=== PATIENT | female | born 1980 ===

== ENCOUNTER 2020-08-26 17:40 | Emergency (ER) | payer SELFPAY ==
[~2020-08-26] VITALS: Ht 162.6 cm; Wt 65.8 kg
--- NOTE | 2020-08-26 18:01 | NUR ---
URINE SPECIMEN SENT TO LAB FOR UA. PT REQUESTED TO SEAT IN WAITING ROOM FOR RESULTS.
--- NOTE | 2020-08-26 18:33 | NUR ---
PT LEFT WITHOUT WAITING FOR TEST RESULTS.
[2020-08-26 18:40] LABS: *BILIRUBIN,URIN NEGATIVE (NEGATIVE); *BLOOD, URINE 2+ (NEGATIVE); *COLOR,URINE YELLOW (YELLOW); *KETONES,URINE NEGATIVE (NEGATIVE); *UROBILINOGEN,URINE 0.2 E.U./dl (NORMAL); LEUKOCYTE ESTERASE ,URINE 1+ (NEGATIVE); NITRITE, URINE NEGATIVE (NEGATIVE); PH,URINE 6.5 (5.0-8.0); UGLUCOSE NEGATIVE (NEGATIVE)
[2020-08-26 18:43] LABS: *URINE HCG, QUAL NEGATIVE (NEGATIVE)
[2020-08-26 19:01] LABS: *CLARITY,URINE HAZY (CLEAR)
[2020-08-26 19:02] LABS: BACTERIA,URINE FEW /HPF (NONE SEEN); SQUAMOUS EPITHELIAL CELL,UR MODERATE /HPF (NONE SEEN)
== END 2020-08-26 18:36 | disposition left against medical advice (07) ==
LOC: ER 17:44
DX: R10.9 Unspecified abdominal pain (principal)
CPT/HCPCS: 84703; 87086; A4663